=== PATIENT | male | born 1965 | race African-American/Black ===

== ENCOUNTER → 2019-05-05 | Day surgery (SDC) | payer OTHER, BC ==
[~2019-05-05] MED LIST: ALLO100T PO; IV RINGERS SOLUTION,LACTATED 1,000 ML IV SCH; LIDOCAINE 2% PF Vial for OR 5 ML VIAL. ONE; PROPOFOL 20 ML IV ONE; TAMS0.4C97 PO
[2019-05-05 08:10] VITALS: BP 125/69
--- NOTE | 2019-05-06 15:07 | PATHOLOGY ---
[facility] Accession Number: [id number] . 01 Material submitted: . PART A: stomach - GASTRIC ANTRUM BX PART B: esophagus - DISTAL ESOPHAGUS BX. Modifiers: distal . 01 Clinical history: . None provided . 02 Diagnosis: A. Gastric biopsies, antrum: - Chronic gastritis, mild. . B. Esophageal biopsies, distal esophagus: - Reflux esophagitis. . (JPM:mackenzie; 05/06/2019) QMS 05/06/2019 0907 Local . 02 Comment: Sections of the gastric biopsy reveal segments of gastric antral and antral/body transition mucosa. The latter shows congestion and mild superficial chronic inflammation. The antral mucosa shows congestion and very mild chronic inflammation. A properly controlled immunoperoxidase stain for Helicobacter is negative for Helicobacter organisms. . Sections of the distal esophageal biopsy reveal segments of focally tangentially oriented hyperplastic squamous esophageal mucosa. The findings are supportive of the diagnosis of reflux esophagitis. There is no evidence of Lyles's change, dysplasia, or malignancy. (JPM:mackenzie; 05/06/2019) . . Special stain performed: Immunoperoxidase stain for Helicobacter on A1 . 02 Electronically signed: . Romero Moss MD, Pathologist NPI- [id number] . 01 Gross description: . A. The specimen is received in formalin, labeled "Je Holm, gastric BX" and consists of 3 fragments of pink-jameson tissue measuring between 0.3 x 0.2 cm and 0.3 x 0.3 cm which are entirely submitted in A1. . B. The specimen is received in formalin, labeled "Je Holm, distal esophagus BX" and consists of 2 translucent fragments of pink-lynn tissue measuring 0.4 x 0.2 cm and 0.4 x 0.3 cm which are entirely submitted in B1. (SDY; 05/05/2019) SYU/SYU 05/05/2019 1600 Local . 02 Pathologist provided ICD-10: K29.50, K21.0 . 02 CPT . 615364, 653117, [id number] Specimen Comment: A courtesy copy of this report has been sent to [phone], [phone] Specimen Comment: [phone] Specimen Comment: Report sent to / DR VALVERDE Performed at: [facility] [address] [facility] [address] [address], [place] [id number] MD Amilcar Pandya MD Phone: [phone] Performed at: 02 [facility] [address] [place], [place] [id number] MD Romero Moss MD Phone: [phone]
== END | disposition home or self-care (01) ==
LOC: SURG 06:01
PROVIDERS: ATTEND Emergency Medicine
DX: R10.13 Epigastric pain (principal); K44.9 Diaphragmatic hernia without obstruction or gangrene; K29.50 Unspecified chronic gastritis without bleeding; R93.3 Abnormal findings on diagnostic imaging of other parts of digestive tract; K21.0 Gastro-esophageal reflux disease with esophagitis; K31.89 Other diseases of stomach and duodenum; I10 Essential (primary) hypertension; Z98.890 Other specified postprocedural states; Z79.899 Other long term (current) drug therapy; Z88.0 Allergy status to penicillin; Z72.89 Other problems related to lifestyle
CPT/HCPCS: 43239; 88305; 88342; J2704; J7120; J2001

== ENCOUNTER → 2020-09-13 | Outpatient (CLI) | payer OTHER, BC ==
[2019-05-05 08:10] VITALS: BP 125/69
[~2020-09-13] MED LIST changes: -IV RINGERS SOLUTION,LACTATED 1,000 ML IV SCH; -LIDOCAINE 2% PF Vial for OR 5 ML VIAL. ONE; -PROPOFOL 20 ML IV ONE
--- NOTE | 2020-09-13 10:20 | RAD ---
EXAMINATION: US DPLX VENOUS EXTREMITY LOWER RT (LOWER EXTREMITY VENOUS ULTRASOUND) CLINICAL HISTORY: Right calf pain TECHNIQUE: Sonographic grayscale images obtained of the right lower extremity deep venous system with color flow Doppler, compression, and augmentation techniques as indicated. Images obtained and stor ed in a permanent archive. COMPARISON: None FINDINGS: No evidence of absent flow or incompressibility within the common femoral vein, femoral vein, or popl iteal vein. Visualized calf veins, including the anterior tibial vein at the region of concern in the lateral calf, appear patent on limited evaluation. IMPRESSION: No evidence of right lower extremity DVT. Electronically signed by: Pelon Melendrez DO (09/13/2020 10:17 AM) [id number]
== END ==
LOC: US 09:47
PROVIDERS: ATTEND Family Medicine
DX: M79.661 Pain in right lower leg (principal); Z86.718 Personal history of other venous thrombosis and embolism
CPT/HCPCS: 93971